=== PATIENT | male | born 1965 | race American Indian/Alaskan Native ===

== ENCOUNTER 2019-01-07 16:00 | Emergency (ER) | payer OTHER ==
--- NOTE | 2019-01-07 16:53 | Emergency Department Report ---
Chief Complaint: Chest Pain Stated Complaint: CHEST PAIN/VOMIT BLOOD Time Seen by Provider: 01/07/19 16:49 - HPI History of Present Illness: This is a 53 y.o. male that presents to the ER with cough, chest discomfort, and myalgia x 2 weeks. Current smoker CC: productive cough, chest discomfort, and myalgia - Exam Vital Signs: Vital Signs 01/07/19 16:49 Temperature 98 F Pulse Rate 83 Respiratory 22 Rate Blood Pressure 156/94 O2 Sat by Pulse 97 Oximetry MSE screening note: Focused history and physical exam performed. Due to findings the following was ordered: CXR ACC for further evaluation. ED Disposition for MSE Condition: Stable
--- NOTE | 2019-01-07 17:45 | XRay Report ---
PROCEDURE: XR CHEST ROUTINE 2V TECHNIQUE: PA and lateral views of the chest HISTORY: chest pain and cough COMPARISONS: None FINDINGS: There is no evidence of infiltrate, pneumothorax or pleural fluid collection. The cardiomediastinal silhouette is normal in appearance. The bony structures are unremarkable. IMPRESSION: 1. No evidence of an acute pulmonary process. This document is electronically signed by Vijaya Acuña MD., January 07 2019 05:43:22 PM ET
[2019-01-07] MEDS ORDERED: NORCO 5/325 PO ONE (20:12)
--- NOTE | 2019-01-07 20:13 | Emergency Department Report ---
- General Chief Complaint: Chest Pain Stated Complaint: CHEST PAIN/VOMIT BLOOD Time Seen by Provider: 01/07/19 16:49 Source: patient Mode of arrival: Ambulatory Limitations: No Limitations - History of Present Illness Initial Comments: 232 admitting diagnoses 1 department complaining of a two-week history of cough, cold, congestion, coryza, thus been [id number] assisting onset. Occasional wheezing off and on and aches of the chest with with coughing spells and deep breath. Reports no hemoptysis, no hematemesis, no abdominal pain, no diarrhea no constipation. No dysuria. MD Complaint: cough, sore throat, rhinorrhea, nasal congestion, sinus pain Severity: moderate Severity scale (0 -10): 2 Consistency: constant Improves With: nothing Worsens With: nothing Associated Symptoms: chills, rhinorrhea, nasal congestion, cough. denies: diaphoresis, shortness of breath, nausea, vomiting, right sweats, weight loss, epistaxis, hoarseness - Related Data Previous Rx's Medication Instructions Recorded Last Taken Type ALBUTEROL Inhaler (OR & NICU) 1 puff IH Q4-6H PRN #1 inha 01/07/19 Unknown Rx [ProAir HFA Inhaler] Amoxicillin [Amoxicillin TAB] 875 mg PO BID #20 tablet 01/07/19 Unknown Rx guaiFENesin/CODEINE [Robitussin AC] 5 ml PO Q6H PRN #120 ml 01/07/19 Unknown Rx Allergies Allergy/AdvReac Type Severity Reaction Status Date / Time No Known Allergies Allergy Verified 01/07/19 16:04 ED Review of Systems ROS: Stated complaint: CHEST PAIN/VOMIT BLOOD Other details as noted in HPI Constitutional: denies: chills, fever Eyes: denies: eye pain, eye discharge, vision change ENT: denies: ear pain, throat pain Respiratory: denies: cough, shortness of breath, wheezing Cardiovascular: denies: chest pain, palpitations Endocrine: no symptoms reported Gastrointestinal: denies: abdominal pain, nausea, diarrhea Genitourinary: denies: urgency, dysuria Musculoskeletal: denies: back pain, joint swelling, arthralgia Skin: denies: rash, lesions Neurological: denies: headache, weakness, paresthesias Psychiatric: denies: anxiety, depression Hematological/Lymphatic: denies: easy bleeding, easy bruising ED Past Medical Hx - Past Medical History Previous Medical History?: No - Surgical History Past Surgical History?: No - Social History Smoking Status: Current Every Day Smoker Substance Use Type: None - Medications Home Medications: Home Medications Medication Instructions Recorded Confirmed Last Taken Type ALBUTEROL Inhaler (OR & NICU) 1 puff IH Q4-6H PRN #1 inha 01/07/19 Unknown Rx [ProAir HFA Inhaler] Amoxicillin [Amoxicillin TAB] 875 mg PO BID #20 tablet 01/07/19 Unknown Rx guaiFENesin/CODEINE [Robitussin AC] 5 ml PO Q6H PRN #120 ml 01/07/19 Unknown Rx ED Physical Exam - General Limitations: No Limitations General appearance: alert, in no apparent distress - Head Head exam: Present: atraumatic, normocephalic - Eye Eye exam: Present: normal appearance, PERRL, EOMI. Absent: scleral icterus, conjunctival injection Pupils: Present: normal accommodation - ENT ENT exam: Present: normal exam, mucous membranes moist, TM's normal bilaterally - Neck Neck exam: Present: normal inspection, full ROM. Absent: meningismus, thyromegaly - Respiratory Respiratory exam: Present: normal lung sounds bilaterally, rhonchi. Absent: respiratory distress, wheezes, rales - Cardiovascular Cardiovascular Exam: Present: regular rate, normal rhythm. Absent: systolic murmur, diastolic murmur, rubs, gallop - GI/Abdominal GI/Abdominal exam: Present: soft, normal bowel sounds. Absent: distended, tenderness, hyperactive bowel sounds, hypoactive bowel sounds, organomegaly - Rectal Rectal exam: Present: deferred - Extremities Exam Extremities exam: Present: normal inspection - Back Exam Back exam: Present: normal inspection - Neurological Exam Neurological exam: Present: alert, oriented X3 - Psychiatric Psychiatric exam: Present: normal affect, normal mood - Skin Skin exam: Present: warm, dry, intact, normal color. Absent: rash ED Course Vital Signs 01/07/19 16:49 Temperature 98 F Pulse Rate 83 Respiratory 22 Rate Blood Pressure 156/94 O2 Sat by Pulse 97 Oximetry Critical care attestation.: If time is entered above; I have spent that time in minutes in the direct care of this critically ill patient, excluding procedure time. ED Disposition Clinical Impression: Bronchitis, Cough, Pharyngitis Disposition: DC-01 TO HOME OR SELFCARE Is pt being admited?: No Does the pt Need Aspirin: No Condition: Stable Instructions: Chronic Bronchitis (ED) Referrals: FERNY BATISTA MD [Primary Care Provider] - 3-5 Days
[2019-01-07] MEDS ORDERED: NORCO 5/325 ONE (20:15)
[2019-01-07 20:30] VITALS: BP 164/94
== END 2019-01-07 20:29 | disposition home or self-care (01) ==
LOC: ED 16:00
DX: J40 Bronchitis, not specified as acute or chronic (principal); J02.9 Acute pharyngitis, unspecified; F17.200 Nicotine dependence, unspecified, uncomplicated
CPT/HCPCS: 71046; 93005; 93010; 99283

== ENCOUNTER 2019-04-15 17:13 | Emergency (ER) | payer SELFPAY ==
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
[2019-04-15] MEDS ORDERED: TORADOL IM ONE (20:01)
[2019-04-15] MEDS ORDERED: FIORICET PO ONE (20:01)
--- NOTE | 2019-04-15 20:36 | Emergency Department Report ---
ED General Adult HPI - General Chief complaint: Nosebleed Stated complaint: L EYE PAIN/NOSE BLEED Time Seen by Provider: 04/15/19 17:40 Source: patient Mode of arrival: Ambulatory Limitations: No Limitations - History of Present Illness Initial comments: Patient is a 54 yo AA male with a h/o HTN, chronic migraine headaches who presents to the ED with c/o acute onset persistent headache x 1 week. Patient also c/o acute onset right-sided epistaxis over 12 hours ago and which resolved immediately. Patient denies dyspnea, nausea, vomiting, dizziness, fever, chills, vision loss, neck pain, syncope, chest pain, dyspnea or sore throat and traumatic injury. MD Complaint: HEADACHE, NOSEBLEED -: Gradual, week(s) (1) Location: head, face Radiation: non-radiation Severity scale (0 -10): 6 Quality: aching, sharp Consistency: intermittent Improves with: none Worsens with: none Associated Symptoms: denies other symptoms, headaches. denies: confusion, chest pain, cough, diaphoresis, fever/chills, loss of appetite, malaise, nausea/vomiting, rash, seizure, shortness of breath, syncope, weakness Treatments Prior to Arrival: none - Related Data Previous Rx's Medication Instructions Recorded Last Taken Type ALBUTEROL Inhaler (OR & NICU) 1 puff IH Q4-6H PRN #1 inha 01/07/19 Unknown Rx [ProAir HFA Inhaler] Amoxicillin [Amoxicillin TAB] 875 mg PO BID #20 tablet 01/07/19 Unknown Rx guaiFENesin/CODEINE [Robitussin AC] 5 ml PO Q6H PRN #120 ml 01/07/19 Unknown Rx Butalb/Acetamin/Caff 50-325-40 1 - 2 each PO Q4H PRN #15 tablet 04/15/19 Unknown Rx [Fioricet 50-325-40] Ibuprofen [Motrin] 800 mg PO Q8HR PRN #20 tablet 04/15/19 Unknown Rx Allergies Allergy/AdvReac Type Severity Reaction Status Date / Time No Known Allergies Allergy Verified 01/07/19 16:04 ED Review of Systems ROS: Stated complaint: L EYE PAIN/NOSE BLEED Other details as noted in HPI Constitutional: denies: chills, fever Eyes: denies: eye pain, eye discharge, vision change ENT: epistaxis (resolved 12 hours ago). denies: ear pain, throat pain Respiratory: denies: cough, shortness of breath, wheezing Cardiovascular: denies: chest pain, palpitations Endocrine: no symptoms reported Gastrointestinal: denies: abdominal pain, nausea, vomiting, diarrhea Genitourinary: denies: urgency, dysuria Musculoskeletal: denies: back pain, joint swelling, arthralgia Skin: denies: rash, lesions Neurological: headache. denies: weakness, paresthesias Psychiatric: denies: anxiety, depression Hematological/Lymphatic: denies: easy bleeding, easy bruising ED Past Medical Hx - Past Medical History Previous Medical History?: No Hx Arthritis: No Hx Asthma: No - Surgical History Past Surgical History?: No - Social History Smoking Status: Current Every Day Smoker Substance Use Type: None, Marijuana - Medications Home Medications: Home Medications Medication Instructions Recorded Confirmed Last Taken Type ALBUTEROL Inhaler (OR & NICU) 1 puff IH Q4-6H PRN #1 inha 01/07/19 Unknown Rx [ProAir HFA Inhaler] Amoxicillin [Amoxicillin TAB] 875 mg PO BID #20 tablet 01/07/19 Unknown Rx guaiFENesin/CODEINE [Robitussin AC] 5 ml PO Q6H PRN #120 ml 01/07/19 Unknown Rx Butalb/Acetamin/Caff 50-325-40 1 - 2 each PO Q4H PRN #15 tablet 04/15/19 Unknown Rx [Fioricet 50-325-40] Ibuprofen [Motrin] 800 mg PO Q8HR PRN #20 tablet 04/15/19 Unknown Rx ED Physical Exam - General Limitations: No Limitations General appearance: alert, in no apparent distress - Head Head exam: Present: atraumatic, normocephalic, normal inspection - Eye Eye exam: Present: normal appearance, PERRL, EOMI - ENT ENT exam: Present: normal exam, normal orophraynx, mucous membranes moist, TM's normal bilaterally, normal external ear exam - Neck Neck exam: Present: normal inspection, full ROM - Respiratory Respiratory exam: Present: normal lung sounds bilaterally. Absent: respiratory distress, wheezes, rales, rhonchi, chest wall tenderness, accessory muscle use, decreased breath sounds - Cardiovascular Cardiovascular Exam: Present: regular rate, normal rhythm, normal heart sounds. Absent: systolic murmur, diastolic murmur, rubs, gallop - GI/Abdominal GI/Abdominal exam: Present: soft, normal bowel sounds. Absent: tenderness, guarding, rebound, hyperactive bowel sounds, hypoactive bowel sounds, organomegaly, bruit, pulsatile mass - Rectal Rectal exam: Present: deferred - Extremities Exam Extremities exam: Present: normal inspection, full ROM, normal capillary refill - Back Exam Back exam: Present: normal inspection, full ROM. Absent: tenderness, CVA tenderness (L), muscle spasm, paraspinal tenderness, vertebral tenderness - Neurological Exam Neurological exam: Present: alert, oriented X3, CN II-XII intact, normal gait, reflexes normal - Psychiatric Psychiatric exam: Present: normal affect, normal mood - Skin Skin exam: Present: warm, dry, intact, normal color. Absent: rash ED Course Vital Signs 04/15/19 04/15/19 17:35 20:14 Temperature 98.2 F Pulse Rate 67 Respiratory 18 16 Rate Blood Pressure 143/84 O2 Sat by Pulse 97 Oximetry - Reevaluation(s) Reevaluation #1: 04/15/19 20:40 Patient is alert and oriented x 3 and is in no acute distress. Patient's vital signs are stable. Patient was treated for pain and discharged home on more migraine headache medications, and advised to follow up with his PCP in 5- 7 days for reevaluation, or return to the ED immediately if symptoms get worse. ED Medical Decision Making - Medical Decision Making Patient is alert and oriented x 3 and is in no acute distress. Patient's vital signs are stable. Patient has no epistaxis at this time. Patient was treated for pain and discharged home on more migraine headache medications, and advised to follow up with his PCP in 5- 7 days for reevaluation, or return to the ED immediately if symptoms get worse. - Differential Diagnosis migraine headache; uncontrolled HTN; epistaxis, acute URI Critical care attestation.: If time is entered above; I have spent that time in minutes in the direct care of this critically ill patient, excluding procedure time. ED Disposition Clinical Impression: Right-sided nosebleed Headache, chronic migraine without aura Qualifiers: Status migrainosus presence: without status migrainosus Intractability: not intractable Qualified Code(s): G43.709 - Chronic migraine without aura, not intractable, without status migrainosus Disposition: - TO HOME OR SELFCARE Is pt being admited?: No Does the pt Need Aspirin: No Condition: Stable Instructions: Migraine Headache (ED), Epistaxis (ED) Additional Instructions: FOLLOW UP WITH YOUR PRIMARY CARE PHYSICIAN IN 7-10 DAYS FOR REEVALUATION. RETURN TO THE ED IMMEDIATELY IF SYMPTOMS GET WORSE. Prescriptions: Butalb/Acetamin/Caff 50-325-40 [Fioricet 50-325-40] 1 - 2 each PO Q4H PRN #15 tablet PRN Reason: Headache Ibuprofen [Motrin] 800 mg PO Q8HR PRN #20 tablet PRN Reason: Pain , Severe (7-10) Referrals: FERNY BATISTA MD [Primary Care Provider] - 3-5 Days Time of Disposition: 20:32 Print Language: CONGOLESE
[2019-04-15 20:55] VITALS: BP 173/89
== END 2019-04-15 20:54 | disposition home or self-care (01) ==
LOC: ED 17:13
DX: R04.0 Epistaxis (principal); G43.709 Chronic migraine without aura, not intractable, without status migrainosus; F17.200 Nicotine dependence, unspecified, uncomplicated; F12.10 Cannabis abuse, uncomplicated; Z79.899 Other long term (current) drug therapy
CPT/HCPCS: 96372; 99282; J1885

== ENCOUNTER 2019-05-04 05:59 | Emergency (ER) | payer SELFPAY ==
[2019-05-04] MEDS ORDERED: BENADRYL IV ONE (07:08)
[2019-05-04] MEDS ORDERED: SOLU-Medrol IM ONE (07:08)
[2019-05-04] MEDS ORDERED: REGLAN IV ONE (07:08)
[2019-05-04] MEDS ORDERED: FIORICET PO ONE (07:08)
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
[2019-05-04] MEDS ORDERED: SOLU-Medrol IV ONE (07:34)
[2019-05-04 08:54] VITALS: BP 148/105
== END 2019-05-04 08:58 | disposition home or self-care (01) ==
LOC: ED 05:59
DX: R51 Headache (principal); I10 Essential (primary) hypertension; F17.200 Nicotine dependence, unspecified, uncomplicated
CPT/HCPCS: 96374; 96375; 99283; J1200; J2765; J2930